=== PATIENT | male | born 1975 | race Hispanic/Latino ===

== ENCOUNTER 2025-01-27 08:24 | Emergency (ER) | payer OTHER ==
[2025-01-27 08:30] VITALS: PULSE 62; RESP 20; TEMP 97.8; O2SAT 97
[2025-01-27] MEDS: BACITRACIN ZINC 0.9GM TP ONE (09:05)
[2025-01-27] MEDS: AMOXICILLIN/CLAVULANATE K 875 MG TAB PO STA (09:05)
[2025-01-27] MEDS: TETANUS/DIPHTHERIA TOX ADULT 0.5 ML SYR IM ONE (09:06)
[2025-01-27] MEDS: TRAMADOL HCL 50 MG TAB PO ONE (09:09)
[2025-01-27] MEDS ORDERED: AMOX TR-K CLV1 EAC2 PO (09:17)
== END 2025-01-27 09:28 | disposition home or self-care (01) ==
LOC: FSED 08:34
DX: S61.431A Puncture wound without foreign body of right hand, initial encounter (principal); W26.0XXA Contact with knife, initial encounter; Y92.89 Other specified places as the place of occurrence of the external cause
CPT/HCPCS: 90471; 90714; 99284